=== PATIENT | male | born 1990 | race Caucasian/White ===

== ENCOUNTER 2018-10-22 17:48 | Emergency (ER) | payer SELFPAY ==
[2018-10-22] VITALS (8 sets, daily range): BP systolic 122–149; BP diastolic 70–96; PULSE 104–125; RESP 15–20; TEMP 36.9; O2SAT 92–95; BMI 23.3
[2018-10-22] MEDS: SODIUM CHLORIDE 0.9% 1,000 ML 1000 ML IV (18:42)
[2018-10-22 18:49] LABS: Add Manual Diff / Slide Review NO; Basophils Absolute Auto 0 /uL (0-100); Basophils Percent Auto 0.2 % (0-2); Eosinophils Absolute Auto 100 /uL (0-450); Eosinophils Percent Auto 2.1 % (2-4); Hematocrit 48.3 % (41-53); Hemoglobin 16.3 g/dL (13.5-17.5); Lymphocytes Absolute Auto 800 /uL (1100-4500); Lymphocytes Percent Auto 24.9 % (25-40); Mean Corpuscular HGB Conc 33.6 % (30-36); Mean Corpuscular Hemoglobin 33.9 PG (26-34); Mean Corpuscular Volume 100.7 fL (80-100); Monocytes Absolute Auto 300 /uL (0-900); Monocytes Percent Auto 8.6 % (3-14); Neutrophils Absolute Auto 2000 /uL (1500-7000); Neutrophils Percent Auto 64.2 % (50-75); Platelet Count 116 X10^3/uL (150-400); Red Cell Distribution Width 13.4 % (11.6-14.8)
[2018-10-22 18:58] LABS: Acetaminophen < 10 ug/mL (10-30); Alanine Aminotransferase 111 IU/L (21-72); Albumin 4.6 g/dL (3.5-5.0); Albumin Globulin Ratio 1.6 (1.0-2.8); Alkaline Phosphatase 45 U/L (38-126); Aspartate Aminotransferase 69 IU/L (17-59); BUN Creatinine Ratio 12.9 (6-22); Bilirubin Total 0.8 mg/dL (0.2-1.3); Blood Urea Nitrogen 9 mg/dL (9-20); Calcium 8.5 mg/dL (8.4-10.2); Carbon Dioxide 30 mmol/L (22-32); Chloride 102 mmol/L (98-107); Estimated Glomerular Filt Rate > 60.0 mL/min (>60); Globulin 2.9 g/dL (1.7-4.1); Glucose 93 mg/dL (70-100); HEMOLYSIS 19 (0-50); Potassium 4.4 mmol/L (3.4-5.1); Salicylate < 1.0 mg/dL (<20); Sodium 146 mmol/L (137-145); Total Protein 7.5 g/dL (6.3-8.2)
[2018-10-22 19:07] LABS: Ethanol (ETOH) 485 mg/dL
[2018-10-22 19:28] LABS: Thyroid Stimulating Hormone 0.39 uIU/mL (0.47-4.68)
--- NOTE | 2018-10-22 19:30 | PC.NURSE ---
Pt steady on feet, ambulated to restroom, to void in a urinal.
--- NOTE | 2018-10-22 19:54 | CM.SWNOTE ---
Addendum entered by REGGIE Hernandez 10/22/18 20:27: Diagnostic Impression Pt is very depressed. He has racing thoughts, and auditory hallucinations which he reported make it impossible for him to sleep. He has had a significant weight loss ( over 20 pounds in a short period of time) He feels hopeless and wants to . Pt meets the definition of major depression, severe with psychotic features. Original Note: ED [employer] Note: Presenting Problem: I don't care anymore about anything. Pt is a 28 yo male transported to by EMS after family received several phone calls from concerned friends and pt's new boss. They informed [employer] that pt took his medication with a significant amount of alcohol. According to both pt and his family, he has had several recent losses which included loss of job, end of a relationship, and now living with family. Pt reported that he hears voices telling him to kill himself. Pt reported that he just wants ot kill himself, but also stated that he would not want to hurt his paretns or his sisters and would not do it. Precipitating Event: Pt has had several losses, but according to both pt and his parents, when depressed, he will use alcohol to self-medicate, and to help him to sleep. Current Behavioral Health Providers: Pt has just begun seeing Dr Sarwat Leary, psychologist. Although he only had 2 sessions, he feels a good connection with him. He was a previous patient of him, in 2013. Past Psychiatric History Pt reported that he has been depressed for many years and frequently felt suicidal. He was unable to pinpoint when he began hearing voices, but the voices occur whether or not he is drinking. He denied any history of psychiatric hospitalizations Family History: According to pt's mother, there is a fmaily history of both depression and alcoholism. Substance abuse History: Pt began drinking at age 18. According to his mother, he began using pills and this then progressed to heroin. Pt did not share the information about the pills and mother was not aware of what he had used. According to family, they believe that he stopped using drugs after the rehab he attended in 2013. Pt shared that he recently used cocaine. he was not clear as to when this occurred, but within the last few weeks Pt has a BAL of 485 at time of ED admission. He was unable to quantify the amount, but parents found several wine bottles under his bed. According to his family, he tends to drink vodka, but has not had money and drank wine that was in the home. Substance Abuse Rehab/detox facilities: Pt attended [facility] in [place] ( 28 days) and then [facility]. Pt reported that he was in this program for 6 months, but family said he left the snf house after 3 weeks as he wanted to go on a family trip. Mental Status: Orientation: A/O x 3, but did not know how he got to the hospital. Affect: labile. Pt would go from laughing, to crying and frequently used profanity. Mood: depressed Thought Content: Pt reported AH telling him to kill himself, but was vague regarding what they said and any plans Thought Process: Despite hearnig voices, his language was clear, goal directed ( at times). The BAL of 485 could account for difficulty recounting what had occurred. Judgment: impaired ( stating he is suicidal and does not want help) Memory: cannot adequately assess due to BAL. SI/HI: Pt was clear that he wanted to kill himself, but was not willing to state his plan. He did state that in the past he has put guns to his head. HI:denied Plan: At this time, pt is a danger to himself. He clearly states that He wants to kill himself and that he is hearing voices telling him to kill himself. Although he has stated that he would not do this as he would not want to hurt his family, he is in considerable emotional pain, under the influence of alcohol, and has significant emotional lability. If pt continues to be unwilling to be psychiatrically hospitalized and continues to state that he would not be safe if he were to be discharged, the DCR would need to be contacted for an evaluation. Pt needs to continue to be assessed as his BAL lowers as there may be a very different response when he is no longer under the influence of alcohol. Discharge Planning/Care Management ED Crisis Response Assessment Start: 10/22/18 19:44 Freq: Status: Active Protocol: Document 10/22/18 19:44 [facility] (Rec: 10/22/18 19:54 [id number]) ED Crisis Response Assessment [employer] Assessment Type Risk of Suicide Attempted Suicide Mental Health Substance Abuse Reason for [employer] Referral Social work consult put in by ED provider, Henny Toribio MD due to suicidal ideation/ attempt Referred by ED providers Presenting Problem Pt is a 28 yo male with a long history of depression and substance abuse. According to pt and family, he has had several losses including the break up of a relationship, loss of job, truck towed and now living with parents. Mental health diagnosis No stated diagonosis, but pt appears to meet criteria for severe depression with psychotic features. VOA/CMS check No Suicidal thoughts Yes Past Suicidal thoughts Yes Current Suicidal thoughts Yes Prior Suicide attempts Yes: pt was vague, but said several times gun to his head Current plan for self harm Yes: would not elaborate, but pt's BAL 485 so unsure what is accurate Access to guns and weapons Yes: pt says yes, but family said not in their home Thoughts of harm to others No Past thoughts of harm to others No Current thoughts of harming others No Prior attempts to harm others No Current plan to harm others No Current Risk factors Recent job loss Substance abuse Risk factor comments Pt is clearly stating I just want to kill myself. He does not feel that life is worth living, but given the BAL of 485, pt will need another assessment when BAL is lower. Relevant Medical History none noted Crisis Plan Plan is to keep pt safe in the ED, while continuing to evaluate. Currently he is not willing to get help, but once pt has less alcohol in his system, he may make a different decision. If pt continues to refuse help, and remains suicidal, DCR will need to be contacted once pt is medically cleared. Additional Comment Bed search to begin once it is confirmed if pt is voluntary or not. ED Psychiatric Symptoms Assessment Start: 10/22/18 17:57 Freq: Status: Active Protocol: Document 10/22/18 18:52 [facility] (Rec: 10/22/18 19:06 ML [id number]) Psychiatric Symptoms Assessment Symptoms/Complaint Suicidal Ideation History Of Same Yes Worsens With Alcohol Associated Psychiatric Symptoms Auditory Hallucinations Suicidal Ideation Associated Symptoms Denies Other Symptoms If Self Harm Admits Thoughts of Self Harm Details of Plan states he has a plan but is not able to say. Pt is intoxicated but cooperative. Level of Consciousness Drowsy Patient Orientation Name Age Birthday Patient Behavior/Mood Anxious Labile Ability to Follow Directions Good Thought Process: Looseness of association Depressive Symptoms Crying Spells Recurrent Thoughts of or Suicide Feelings of Hopelessness Yes Suicidal Ideation Constant Suicide Plan Vague Homicidal Ideation None Nausea/Vomiting None
[2018-10-22 19:57] LABS: Urine Tetrahydrocannabinol Negative (Negative)
[2018-10-22 19:58] LABS: Urine Amphetamines Negative (Negative); Urine Barbiturates Negative (Negative); Urine Benzodiazepines Negative (Negative); Urine Cocaine Negative (Negative); Urine MDMA Negative (Negative); Urine Methadone Negative (Negative); Urine Methamphetamines Negative (Negative); Urine Morphine/Opi cutoff 2000 Negative (Negative); Urine Oxycodone Negative (Negative); Urine Phencyclidine Negative (Negative); Urine Tricyclic Antidepressant Positive (Negative)
--- NOTE | 2018-10-22 21:08 | ED.PSYCH ---
HPI - Psych <Paul Kline, DO - Last Filed: 10/24/18 04:16> General Chief Complaint: Psychiatric Symptoms Stated Complaint: Suicidal, took meds Time Seen by Provider: 10/22/18 18:02 Source: patient, family and EMS Mode of arrival: EMS Limitations: no limitations History of Present Illness HPI Narrative: 28-year-old male nonsmoker with extensive alcohol and illicit drug history presents with suicidal ideation and attempt. The patient has severe depression and frequently hears voices which tell him to hurt himself. Today he initially told family and the paramedics that he took an unknown quantity of Seroquel and fluoxetine in an attempt to kill himself. He states that nothing will quiet the voices which tell him to hurt himself, and he has persistent visions of friends being hurt which persist in his thoughts and he is constantly in search of a way to and his pain. He states he has put a gun to his head on multiple occasions, though not today and is very nonspecific about when that had happened and whether not he has access to a firearm currently. He does state that if discharge that he has a planned without a kill himself but he will not only with this plan his. He is a very heavy drinker and had his last drink a few hours prior to arrival. He has gone through withdrawals in the past and states he has even had a seizure. It is unclear how much of the medications he took and at what time. Later in the interview he denies taking any of them and states he was just under the influence of a significant amount of alcohol. Both of his parents present with him and I have had lengthy conversations with our durable medical equipment repairer. The patient has recently been read acquainted with Dr. Sarwat Leary at [facility]. He states he drinks to quiet the voices and end the pain. He repeated states, very matter of factly, that he knows the only thing that will help him is dying. MD complaint: suicidal ideation and feels depressed Onset (ago): hour(s) Duration: constant History of same: Yes Relieving factors: none Exacerbating factors: none Context: recent alcohol abuse Associated psychiatric symptoms: depression, suicidal ideation and auditory hallucinations Associated symptoms: denies other symptoms Treatments prior to arrival: none If self harm: admits thoughts of self harm, has plan, has acted on plan and intentional overdose Related Data Home Medications Medication Instructions Recorded Confirmed fluoxetine 20 mg PO DAILY 10/23/18 10/23/18 quetiapine 25 mg PO BEDTIME 10/23/18 10/23/18 Allergies Allergy/AdvReac Type Severity Reaction Status Date / Time No Known Drug Allergies Allergy Verified 10/22/18 18:04 Review of Systems <Paul Kline DO - Last Filed: 10/24/18 04:16> Constitutional Denies chills, Denies fever(s), Denies lethargy and Denies weakness Eyes Denies change in vision, Denies eye discharge, Denies irritation and Denies loss of vision ENT Ears, Nose, Mouth, and Throat: Denies change in voice, Denies neck pain and Denies sore throat Cardiovascular Denies chest pain, Denies irregular heart rhythm, Denies lightheadedness, Denies palpitations, Denies dyspnea, Denies dyspnea on exertion and Denies orthopnea Respiratory Denies cough, Denies dyspnea, Denies dyspnea on exertion and Denies wheezing Gastrointestinal Gastrointestinal: Denies abdominal pain, Denies change in bowel habits, Denies diarrhea, Denies nausea and Denies vomiting Genitourinary Denies hematuria, Denies flank pain, Denies urinary incontinence and Denies urinary urgency Musculoskeletal Denies neck pain Integumentary/Breasts Denies pruritus, Denies erythema, Denies rash and Denies wounds Neurologic Denies confusion, Denies loss of vision and Denies weakness Psychiatric Denies anxiety, Denies confusion, Denies depression, Reports auditory hallucinations, Reports hopelessness, Denies homicidal ideation and Denies suicidal ideation Endocrine Denies palpitations Hematologic/Lymphatic Denies easy bruising Allergic/Immunologic Denies wheezing PFSH <Paul Kline DO - Last Filed: 10/24/18 04:16> Social History Smoking Status: Current every day smoker Social History Smoking Status: Current every day smoker Exam <Paul Kline DO - Last Filed: 10/24/18 04:16> Narrative Exam Narrative: GENERAL: 28M appears stated age. He is speaking clearly without slurring words, he can walk a straight line without stumbling HEAD: Atraumatic. Normocephalic. No temporal or scalp tenderness. EYES: Pupils equal round and reactive. Extraocular motions intact. No scleral icterus. No injection or drainage. ENT: Nose without bleeding, purulent drainage or septal hematoma. Throat without erythema, tonsillar hypertrophy or exudate. Uvula midline. Airway patent. NECK: Trachea midline. No JVD or lymphadenopathy. Supple, nontender, no meningeal signs. CARDIOVASCULAR: Regular rate and rhythm without murmurs, gallops, or rubs. RESPIRATORY: Clear to auscultation. Breath sounds equal bilaterally. No wheezes, rales, or rhonchi. GASTROINTESTINAL: Abdomen soft, non-tender, nondistended. No hepato-splenomegaly, or palpable masses. No guarding. EXTREMITIES: No clubbing, cyanosis, or edema. No joint tenderness, effusion, or edema noted. BACK: Nontender without deformity or crepitance. No flank tenderness. NEURO: AOx3. SKIN: No rash or erythema. Initial Vital Signs Initial Vital Signs: Vital Signs Temperature 98.5 F 10/22/18 18:04 Pulse Rate 120 H 10/22/18 18:04 Respiratory Rate 18 10/22/18 18:04 Blood Pressure 149/96 H 10/22/18 18:04 Pulse Oximetry 93 10/22/18 18:04 <Henny Toribio DO - Last Filed: 10/23/18 19:09> Initial Vital Signs Initial Vital Signs: Vital Signs Temperature 98.5 F 10/22/18 18:04 Pulse Rate 120 H 10/22/18 18:04 Respiratory Rate 18 10/22/18 18:04 Blood Pressure 149/96 H 10/22/18 18:04 Pulse Oximetry 93 10/22/18 18:04 Course <Paul Kline DO - Last Filed: 10/24/18 04:16> Course Narrative: though etoh is still quite high the patient continues to be alert and oriented and speaks clearly 0015 - call to [facility]. They will not entertain a call until etoh is below 0.08. Patient continues to have suicidal ideation with a plan. He does not want help and doessn't think anything will help. Patient clearly is in need of hospitalization for evaluation and stabilization Orders Ordered: Discontinued Medications Sodium Chloride (Normal Saline 0.9%) 1,000 mls @ 1,000 mls/hr IV BOLUS ONE Stop: 10/22/18 18:50 Last Infusion: 10/23/18 00:57 Dose: 0 mls/hr Admin: 10/22/18 18:42 Dose: 1,000 mls/hr Lorazepam (Ativan) 1 mg IV NOW ONE Stop: 10/23/18 00:27 Last Admin: 10/23/18 00:30 Dose: 1 mg Lorazepam (Ativan) 2 mg IV NOW ONE Stop: 10/23/18 02:04 Last Admin: 10/23/18 02:09 Dose: 2 mg Lorazepam (Ativan) 1 mg PO NOW ONE Stop: 10/23/18 10:13 Last Admin: 10/23/18 10:19 Dose: 1 mg Lorazepam (Ativan) 1 mg PO NOW ONE Stop: 10/23/18 14:06 Last Admin: 10/23/18 14:11 Dose: 1 mg Lorazepam (Ativan) 2 mg PO NOW ONE Stop: 10/23/18 16:05 Last Admin: 10/23/18 16:10 Dose: 2 mg Vital Signs - 8 hr 10/23/18 11:30 10/23/18 15:30 10/23/18 17:48 Pulse Rate 98 H 108 H 91 H Respiratory Rate 16 Blood Pressure [Left Arm] 140/91 H 157/99 H 158/91 H Pulse Oximetry 97 99 99 <Henny Toribio DO - Last Filed: 10/23/18 19:09> Orders Ordered: Discontinued Medications Sodium Chloride (Normal Saline 0.9%) 1,000 mls @ 1,000 mls/hr IV BOLUS ONE Stop: 10/22/18 18:50 Last Infusion: 10/23/18 00:57 Dose: 0 mls/hr Admin: 10/22/18 18:42 Dose: 1,000 mls/hr Lorazepam (Ativan) 1 mg IV NOW ONE Stop: 10/23/18 00:27 Last Admin: 10/23/18 00:30 Dose: 1 mg Lorazepam (Ativan) 2 mg IV NOW ONE Stop: 10/23/18 02:04 Last Admin: 10/23/18 02:09 Dose: 2 mg Lorazepam (Ativan) 1 mg PO NOW ONE Stop: 10/23/18 10:13 Last Admin: 10/23/18 10:19 Dose: 1 mg Lorazepam (Ativan) 1 mg PO NOW ONE Stop: 10/23/18 14:06 Last Admin: 10/23/18 14:11 Dose: 1 mg Lorazepam (Ativan) 2 mg PO NOW ONE Stop: 10/23/18 16:05 Last Admin: 10/23/18 16:10 Dose: 2 mg Vital Signs - 8 hr 10/23/18 11:30 10/23/18 15:30 10/23/18 17:48 Pulse Rate 98 H 108 H 91 H Respiratory Rate 16 Blood Pressure [Left Arm] 140/91 H 157/99 H 158/91 H Pulse Oximetry 97 99 99 MDM - Psych <Paul Kline DO - Last Filed: 10/24/18 04:16> Lab Data Result diagrams: 10/22/18 18:35 10/22/18 18:35 Lab Results 10/22/18 10/22/18 10/22/18 Range/Units 18:35 18:35 18:35 WBC 3.0 L (4.5-11.0) X10^3/uL RBC 4.80 (4.5-5.9) X10^6/uL Hgb 16.3 (13.5-17.5) g/dL Hct 48.3 (41-53) % MCV 100.7 H (80-100) fL MCH 33.9 (26-34) PG MCHC 33.6 (30-36) % RDW 13.4 (11.6-14.8) % Plt Count 116 L (150-400) X10^3/uL Neut % (Auto) 64.2 (50-75) % Lymph % (Auto) 24.9 L (25-40) % [place] % (Auto) 8.6 (3-14) % Eos % (Auto) 2.1 (2-4) % Baso % (Auto) 0.2 (0-2) % Neut # (Auto) 2000 (3864-3604) /uL Lymph # (Auto) 800 L (1052-0079) /uL [place] # (Auto) 300 (0-900) /uL Eos # (Auto) 100 (0-450) /uL Baso # (Auto) 0 (0-100) /uL Sodium 146 H (137-145) mmol/L Potassium 4.4 (3.4-5.1) mmol/L Chloride 102 (98-107) mmol/L Carbon Dioxide 30 (22-32) mmol/L BUN 9 (9-20) mg/dL Creatinine 0.70 (0.66-1.25) mg/dL Estimated GFR > 60.0 (>60) mL/min BUN/Creatinine Ratio 12.9 (6-22) Glucose 93 (70-100) mg/dL Calcium 8.5 (8.4-10.2) mg/dL Total Bilirubin 0.8 (0.2-1.3) mg/dL AST 69 H (17-59) IU/L ALT 111 H (21-72) IU/L Alkaline Phosphatase 45 (38-126) U/L Total Protein 7.5 (6.3-8.2) g/dL Albumin 4.6 (3.5-5.0) g/dL Globulin 2.9 (1.7-4.1) g/dL Albumin/Globulin Ratio 1.6 (1.0-2.8) TSH 0.39 L (0.47-4.68) uIU/mL Salicylates < 1.0 (<20) mg/dL Urine Opiates Screen (Negative) Ur Oxycodone Screen (Negative) Urine Methadone Screen (Negative) Acetaminophen < 10 L (10-30) ug/mL Ur Barbiturates Screen (Negative) U Tricyclic Antidepress (Negative) Ur Phencyclidine Scrn (Negative) Ur Amphetamines Screen (Negative) U Methamphetamines Scrn (Negative) Ur MDMA Scrn (Ecstasy) (Negative) U Benzodiazepines Scrn (Negative) Urine Cocaine Screen (Negative) U Marijuana (THC) Screen (Negative) Ethyl Alcohol 485 H* mg/dL 10/22/18 10/23/18 Range/Units 19:25 00:32 WBC (4.5-11.0) X10^3/uL RBC (4.5-5.9) X10^6/uL Hgb (13.5-17.5) g/dL Hct (41-53) % MCV (80-100) fL MCH (26-34) PG MCHC (30-36) % RDW (11.6-14.8) % Plt Count (150-400) X10^3/uL Neut % (Auto) (50-75) % Lymph % (Auto) (25-40) % [place] % (Auto) (3-14) % Eos % (Auto) (2-4) % Baso % (Auto) (0-2) % Neut # (Auto) (2444-7828) /uL Lymph # (Auto) (5002-6961) /uL [place] # (Auto) (0-900) /uL Eos # (Auto) (0-450) /uL Baso # (Auto) (0-100) /uL Sodium (137-145) mmol/L Potassium (3.4-5.1) mmol/L Chloride (98-107) mmol/L Carbon Dioxide (22-32) mmol/L BUN (9-20) mg/dL Creatinine (0.66-1.25) mg/dL Estimated GFR (>60) mL/min BUN/Creatinine Ratio (6-22) Glucose (70-100) mg/dL Calcium (8.4-10.2) mg/dL Total Bilirubin (0.2-1.3) mg/dL AST (17-59) IU/L ALT (21-72) IU/L Alkaline Phosphatase (38-126) U/L Total Protein (6.3-8.2) g/dL Albumin (3.5-5.0) g/dL Globulin (1.7-4.1) g/dL Albumin/Globulin Ratio (1.0-2.8) TSH (0.47-4.68) uIU/mL Salicylates (<20) mg/dL Urine Opiates Screen Negative (Negative) Ur Oxycodone Screen Negative (Negative) Urine Methadone Screen Negative (Negative) Acetaminophen (10-30) ug/mL Ur Barbiturates Screen Negative (Negative) U Tricyclic Antidepress Positive H (Negative) Ur Phencyclidine Scrn Negative (Negative) Ur Amphetamines Screen Negative (Negative) U Methamphetamines Scrn Negative (Negative) Ur MDMA Scrn (Ecstasy) Negative (Negative) U Benzodiazepines Scrn Negative (Negative) Urine Cocaine Screen Negative (Negative) U Marijuana (THC) Screen Negative (Negative) Ethyl Alcohol 330 mg/dL Point of Care Testing Breathalizer 0 Urine Dip Bedside Urine Glucose Negative Bedside Urine Bilirubin - Negative Bedside Urine Ketone - Negative Urine Specific [place] 1.010 Bedside Urine Occult Blood - Negative Bedside Urine pH 6.0 Bedside Urine Protein - Negative Bedside Urine Urobilinogen - Negative Bedside Urine Nitrite - Negative Bedside Urine Leukocytes - Negative Esterase <Henny C Mank, DO - Last Filed: 10/23/18 19:09> Lab Data Attestation: I reviewed the patient's lab results. Lab Results 10/22/18 10/22/18 10/22/18 Range/Units 18:35 18:35 18:35 WBC 3.0 L (4.5-11.0) X10^3/uL RBC 4.80 (4.5-5.9) X10^6/uL Hgb 16.3 (13.5-17.5) g/dL Hct 48.3 (41-53) % MCV 100.7 H (80-100) fL MCH 33.9 (26-34) PG MCHC 33.6 (30-36) % RDW 13.4 (11.6-14.8) % Plt Count 116 L (150-400) X10^3/uL Neut % (Auto) 64.2 (50-75) % Lymph % (Auto) 24.9 L (25-40) % [place] % (Auto) 8.6 (3-14) % Eos % (Auto) 2.1 (2-4) % Baso % (Auto) 0.2 (0-2) % Neut # (Auto) 2000 (2580-1597) /uL Lymph # (Auto) 800 L (8774-1694) /uL [place] # (Auto) 300 (0-900) /uL Eos # (Auto) 100 (0-450) /uL Baso # (Auto) 0 (0-100) /uL Sodium 146 H (137-145) mmol/L Potassium 4.4 (3.4-5.1) mmol/L Chloride 102 (98-107) mmol/L Carbon Dioxide 30 (22-32) mmol/L BUN 9 (9-20) mg/dL Creatinine 0.70 (0.66-1.25) mg/dL Estimated GFR > 60.0 (>60) mL/min BUN/Creatinine Ratio 12.9 (6-22) Glucose 93 (70-100) mg/dL Calcium 8.5 (8.4-10.2) mg/dL Total Bilirubin 0.8 (0.2-1.3) mg/dL AST 69 H (17-59) IU/L ALT 111 H (21-72) IU/L Alkaline Phosphatase 45 (38-126) U/L Total Protein 7.5 (6.3-8.2) g/dL Albumin 4.6 (3.5-5.0) g/dL Globulin 2.9 (1.7-4.1) g/dL Albumin/Globulin Ratio 1.6 (1.0-2.8) TSH 0.39 L (0.47-4.68) uIU/mL Salicylates < 1.0 (<20) mg/dL Urine Opiates Screen (Negative) Ur Oxycodone Screen (Negative) Urine Methadone Screen (Negative) Acetaminophen < 10 L (10-30) ug/mL Ur Barbiturates Screen (Negative) U Tricyclic Antidepress (Negative) Ur Phencyclidine Scrn (Negative) Ur Amphetamines Screen (Negative) U Methamphetamines Scrn (Negative) Ur MDMA Scrn (Ecstasy) (Negative) U Benzodiazepines Scrn (Negative) Urine Cocaine Screen (Negative) U Marijuana (THC) Screen (Negative) Ethyl Alcohol 485 H* mg/dL 10/22/18 10/23/18 Range/Units 19:25 00:32 WBC (4.5-11.0) X10^3/uL RBC (4.5-5.9) X10^6/uL Hgb (13.5-17.5) g/dL Hct (41-53) % MCV (80-100) fL MCH (26-34) PG MCHC (30-36) % RDW (11.6-14.8) % Plt Count (150-400) X10^3/uL Neut % (Auto) (50-75) % Lymph % (Auto) (25-40) % [place] % (Auto) (3-14) % Eos % (Auto) (2-4) % Baso % (Auto) (0-2) % Neut # (Auto) (9212-1300) /uL Lymph # (Auto) (3698-9438) /uL [place] # (Auto) (0-900) /uL Eos # (Auto) (0-450) /uL Baso # (Auto) (0-100) /uL Sodium (137-145) mmol/L Potassium (3.4-5.1) mmol/L Chloride (98-107) mmol/L Carbon Dioxide (22-32) mmol/L BUN (9-20) mg/dL Creatinine (0.66-1.25) mg/dL Estimated GFR (>60) mL/min BUN/Creatinine Ratio (6-22) Glucose (70-100) mg/dL Calcium (8.4-10.2) mg/dL Total Bilirubin (0.2-1.3) mg/dL AST (17-59) IU/L ALT (21-72) IU/L Alkaline Phosphatase (38-126) U/L Total Protein (6.3-8.2) g/dL Albumin (3.5-5.0) g/dL Globulin (1.7-4.1) g/dL Albumin/Globulin Ratio (1.0-2.8) TSH (0.47-4.68) uIU/mL Salicylates (<20) mg/dL Urine Opiates Screen Negative (Negative) Ur Oxycodone Screen Negative (Negative) Urine Methadone Screen Negative (Negative) Acetaminophen (10-30) ug/mL Ur Barbiturates Screen Negative (Negative) U Tricyclic Antidepress Positive H (Negative) Ur Phencyclidine Scrn Negative (Negative) Ur Amphetamines Screen Negative (Negative) U Methamphetamines Scrn Negative (Negative) Ur MDMA Scrn (Ecstasy) Negative (Negative) U Benzodiazepines Scrn Negative (Negative) Urine Cocaine Screen Negative (Negative) U Marijuana (THC) Screen Negative (Negative) Ethyl Alcohol 330 mg/dL Point of Care Testing Breathalizer 0 Urine Dip Bedside Urine Glucose Negative Bedside Urine Bilirubin - Negative Bedside Urine Ketone - Negative Urine Specific [place] 1.010 Bedside Urine Occult Blood - Negative Bedside Urine pH 6.0 Bedside Urine Protein - Negative Bedside Urine Urobilinogen - Negative Bedside Urine Nitrite - Negative Bedside Urine Leukocytes - Negative Esterase ECG Data Attestation: I personally reviewed and interpreted this ECG as follows: Interpretation: Sinus tachycardia with a rate of 109 P are 146 QRS of 98 QTC of [address] elevation or depression. MDM Narrative Medical decision making narrative: Patient signed out to myself by Dr. ho, patient was medically cleared other than alcohol was too high for the [facility] to dispatch. They would like it to be below 80. Patient has a torsed suicidal ideation, he has a plan although he would not tell it to Dr. ho. He states that he drinks alcohol in order to drown out the voices that tell him to kill himself. He has been cooperative but has stated that he feels there is nothing to be done and that he only outcome is for him to kill himself. Patient was seen by social work during yesterday evening and they felt he needed placement. He has seen Sarwat Leary who has recommended 24 hour supervision if at home and both times he has been left alone. Throughout patient's stay he has had several doses of Ativan p.o. to prevent withdrawal symptoms. He has had a little bit of shakiness but has not been hypertensive above 150 systolic or tachycardic. Patient has been medically cleared. He continues to endorse suicidal ideation and when asked if he has a plan states he can get very creative. His primary care doctor Shobha also saw him in the department and agrees that he needs hospitalization. Patient was initially no involuntary but after evaluated by [facility] states that he would rather go voluntarily to a facility then be detained. Bed was found at [facility], patient has been accepted by Dr. Abbott. Discharge Plan Departure Patient Disposition: [facility] Clinical Impression: Suicidal ideation, Bipolar disorder Discharge Date/Time: 10/23/18 19:44 Interventions: ED Discharge Assessment Last Done: 10/23/18 19:44 Prescriptions: No Action fluoxetine 20 mg Tablet 20 mg PO DAILY RF: 0 quetiapine 50 mg Tablet 25 mg PO BEDTIME RF: 0
--- NOTE | 2018-10-22 21:41 | PC.NURSE ---
Pt stated this fucking sucks and you have no idea the amount of pain I am in. I cannot express the amount of pain that i feel.
--- NOTE | 2018-10-22 22:48 | PC.NURSE ---
Monitor wires agitating patient, notified jodi Curran to vital intermittently per protocol.
--- NOTE | 2018-10-22 23:05 | PC.NURSE ---
Patient is lying down in bed, family is in the room.
--- NOTE | 2018-10-22 23:15 | PC.NURSE ---
Patient is lying down in bed, his mom is lying in the bed with him.
--- NOTE | 2018-10-22 23:30 | PC.NURSE ---
Patient is lying down in bed, his mom is sitting in the room with him.
[2018-10-23] VITALS (7 sets, daily range): BP systolic 131–159; BP diastolic 69–99; PULSE 87–110; RESP 16–20; TEMP 36.6; O2SAT 96–99
--- NOTE | 2018-10-23 00:10 | ED_ITS ---
HPI - Psych <Paul Kline, DO - Last Filed: 10/24/18 04:16> General Chief Complaint: Psychiatric Symptoms Stated Complaint: Suicidal, took meds Time Seen by Provider: 10/22/18 18:02 Source: patient, family and EMS Mode of arrival: EMS Limitations: no limitations History of Present Illness HPI Narrative: 28-year-old male nonsmoker with extensive alcohol and illicit drug history presents with suicidal ideation and attempt. The patient has severe depression and frequently hears voices which tell him to hurt himself. Today he initially told family and the paramedics that he took an unknown quantity of Seroquel and fluoxetine in an attempt to kill himself. He states that nothing will quiet the voices which tell him to hurt himself, and he has persistent visions of friends being hurt which persist in his thoughts and he is constantly in search of a way to and his pain. He states he has put a gun to his head on multiple occasions, though not today and is very nonspecific about when that had happened and whether not he has access to a firearm currently. He does state that if discharge that he has a planned without a kill himself but he will not only with this plan his. He is a very heavy drinker and had his last drink a few hours prior to arrival. He has gone through withdrawals in the past and states he has even had a seizure. It is unclear how much of the medications he took and at what time. Later in the interview he denies taking any of them and states he was just under the influence of a significant amount of alcohol. Both of his parents present with him and I have had lengthy conversations with our behavioral medical director. The patient has recently been read acquainted with Dr. Sarwat Leary at [facility]. He states he drinks to quiet the voices and end the pain. He repeated states, very matter of factly, that he knows the only thing that will help him is dying. MD complaint: suicidal ideation and feels depressed Onset (ago): hour(s) Duration: constant History of same: Yes Relieving factors: none Exacerbating factors: none Context: recent alcohol abuse Associated psychiatric symptoms: depression, suicidal ideation and auditory hallucinations Associated symptoms: denies other symptoms Treatments prior to arrival: none If self harm: admits thoughts of self harm, has plan, has acted on plan and intentional overdose Related Data Home Medications Medication Instructions Recorded Confirmed fluoxetine 20 mg PO DAILY 10/23/18 10/23/18 quetiapine 25 mg PO BEDTIME 10/23/18 10/23/18 Allergies Allergy/AdvReac Type Severity Reaction Status Date / Time No Known Drug Allergies Allergy Verified 10/22/18 18:04 Review of Systems <Paul Kline DO - Last Filed: 10/24/18 04:16> Constitutional Denies chills, Denies fever(s), Denies lethargy and Denies weakness Eyes Denies change in vision, Denies eye discharge, Denies irritation and Denies loss of vision ENT Ears, Nose, Mouth, and Throat: Denies change in voice, Denies neck pain and Denies sore throat Cardiovascular Denies chest pain, Denies irregular heart rhythm, Denies lightheadedness, Denies palpitations, Denies dyspnea, Denies dyspnea on exertion and Denies orthopnea Respiratory Denies cough, Denies dyspnea, Denies dyspnea on exertion and Denies wheezing Gastrointestinal Gastrointestinal: Denies abdominal pain, Denies change in bowel habits, Denies diarrhea, Denies nausea and Denies vomiting Genitourinary Denies hematuria, Denies flank pain, Denies urinary incontinence and Denies urinary urgency Musculoskeletal Denies neck pain Integumentary/Breasts Denies pruritus, Denies erythema, Denies rash and Denies wounds Neurologic Denies confusion, Denies loss of vision and Denies weakness Psychiatric Denies anxiety, Denies confusion, Denies depression, Reports auditory hallucinations, Reports hopelessness, Denies homicidal ideation and Denies suicidal ideation Endocrine Denies palpitations Hematologic/Lymphatic Denies easy bruising Allergic/Immunologic Denies wheezing PFSH <Paul Kline DO - Last Filed: 10/24/18 04:16> Social History Smoking Status: Current every day smoker Social History Smoking Status: Current every day smoker Exam <Paul Kline DO - Last Filed: 10/24/18 04:16> Narrative Exam Narrative: GENERAL: 28M appears stated age. He is speaking clearly without slurring words, he can walk a straight line without stumbling HEAD: Atraumatic. Normocephalic. No temporal or scalp tenderness. EYES: Pupils equal round and reactive. Extraocular motions intact. No scleral icterus. No injection or drainage. ENT: Nose without bleeding, purulent drainage or septal hematoma. Throat without erythema, tonsillar hypertrophy or exudate. Uvula midline. Airway patent. NECK: Trachea midline. No JVD or lymphadenopathy. Supple, nontender, no meningeal signs. CARDIOVASCULAR: Regular rate and rhythm without murmurs, gallops, or rubs. RESPIRATORY: Clear to auscultation. Breath sounds equal bilaterally. No wheezes, rales, or rhonchi. GASTROINTESTINAL: Abdomen soft, non-tender, nondistended. No hepato- splenomegaly, or palpable masses. No guarding. EXTREMITIES: No clubbing, cyanosis, or edema. No joint tenderness, effusion, or edema noted. BACK: Nontender without deformity or crepitance. No flank tenderness. NEURO: AOx3. SKIN: No rash or erythema. Initial Vital Signs Initial Vital Signs: Vital Signs Temperature 98.5 F 10/22/18 18:04 Pulse Rate 120 H 10/22/18 18:04 Respiratory Rate 18 10/22/18 18:04 Blood Pressure 149/96 H 10/22/18 18:04 Pulse Oximetry 93 10/22/18 18:04 <Henny Toribio DO - Last Filed: 10/23/18 19:09> Initial Vital Signs Initial Vital Signs: Vital Signs Temperature 98.5 F 10/22/18 18:04 Pulse Rate 120 H 10/22/18 18:04 Respiratory Rate 18 10/22/18 18:04 Blood Pressure 149/96 H 10/22/18 18:04 Pulse Oximetry 93 10/22/18 18:04 Course <Paul Kline DO - Last Filed: 10/24/18 04:16> Course Narrative: though etoh is still quite high the patient continues to be alert and oriented and speaks clearly 0015 - call to [facility]. They will not entertain a call until etoh is below 0.08. Patient continues to have suicidal ideation with a plan. He does not want help and doessn't think anything will help. Patient clearly is in need of hospitaliza tion for evaluation and stabilization Orders Ordered: Discontinued Medications Sodium Chloride (Normal Saline 0.9%) 1,000 mls @ 1,000 mls/hr IV BOLUS ONE Stop: 10/22/18 18:50 Last Infusion: 10/23/18 00:57 Dose: 0 mls/hr Admin: 10/22/18 18:42 Dose: 1,000 mls/hr Lorazepam (Ativan) 1 mg IV NOW ONE Stop: 10/23/18 00:27 Last Admin: 10/23/18 00:30 Dose: 1 mg Lorazepam (Ativan) 2 mg IV NOW ONE Stop: 10/23/18 02:04 Last Admin: 10/23/18 02:09 Dose: 2 mg Lorazepam (Ativan) 1 mg PO NOW ONE Stop: 10/23/18 10:13 Last Admin: 10/23/18 10:19 Dose: 1 mg Lorazepam (Ativan) 1 mg PO NOW ONE Stop: 10/23/18 14:06 Last Admin: 10/23/18 14:11 Dose: 1 mg Lorazepam (Ativan) 2 mg PO NOW ONE Stop: 10/23/18 16:05 Last Admin: 10/23/18 16:10 Dose: 2 mg Vital Signs - 8 hr 10/23/18 11:30 10/23/18 15:30 10/23/18 17:48 Pulse Rate 98 H 108 H 91 H Respiratory Rate 16 Blood Pressure [Left Arm] 140/91 H 157/99 H 158/91 H Pulse Oximetry 97 99 99 <Henny Toribio DO - Last Filed: 10/23/18 19:09> Orders Ordered: Discontinued Medications Sodium Chloride (Normal Saline 0.9%) 1,000 mls @ 1,000 mls/hr IV BOLUS ONE Stop: 10/22/18 18:50 Last Infusion: 10/23/18 00:57 Dose: 0 mls/hr Admin: 10/22/18 18:42 Dose: 1,000 mls/hr Lorazepam (Ativan) 1 mg IV NOW ONE Stop: 10/23/18 00:27 Last Admin: 10/23/18 00:30 Dose: 1 mg Lorazepam (Ativan) 2 mg IV NOW ONE Stop: 10/23/18 02:04 Last Admin: 10/23/18 02:09 Dose: 2 mg Lorazepam (Ativan) 1 mg PO NOW ONE Stop: 10/23/18 10:13 Last Admin: 10/23/18 10:19 Dose: 1 mg Lorazepam (Ativan) 1 mg PO NOW ONE Stop: 10/23/18 14:06 Last Admin: 10/23/18 14:11 Dose: 1 mg Lorazepam (Ativan) 2 mg PO NOW ONE Stop: 10/23/18 16:05 Last Admin: 10/23/18 16:10 Dose: 2 mg Vital Signs - 8 hr 10/23/18 11:30 10/23/18 15:30 10/23/18 17:48 Pulse Rate 98 H 108 H 91 H Respiratory Rate 16 Blood Pressure [Left Arm] 140/91 H 157/99 H 158/91 H Pulse Oximetry 97 99 99 MDM - Psych <Paul Kline DO - Last Filed: 10/24/18 04:16> Lab Data Result diagrams: 10/22/18 18:35 10/22/18 18:35 Lab Results 10/22/18 10/22/18 10/22/18 Range/Units 18:35 18:35 18:35 WBC 3.0 L (4.5-11.0) X10^3/uL RBC 4.80 (4.5-5.9) X10^6/uL Hgb 16.3 (13.5-17.5) g/dL Hct 48.3 (41-53) % MCV 100.7 H (80-100) fL MCH 33.9 (26-34) PG MCHC 33.6 (30-36) % RDW 13.4 (11.6-14.8) % Plt Count 116 L (150-400) X10^3/uL Neut % (Auto) 64.2 (50-75) % Lymph % (Auto) 24.9 L (25-40) % [place] % (Auto) 8.6 (3-14) % Eos % (Auto) 2.1 (2-4) % Baso % (Auto) 0.2 (0-2) % Neut # (Auto) 2000 (8241-8926) /uL Lymph # (Auto) 800 L (2587-5032) /uL [place] # (Auto) 300 (0-900) /uL Eos # (Auto) 100 (0-450) /uL Baso # (Auto) 0 (0-100) /uL Sodium 146 H (137-145) mmol/L Potassium 4.4 (3.4-5.1) mmol/L Chloride 102 (98-107) mmol/L Carbon Dioxide 30 (22-32) mmol/L BUN 9 (9-20) mg/dL Creatinine 0.70 (0.66-1.25) mg/dL Estimated GFR > 60.0 (>60) mL/min BUN/Creatinine Ratio 12.9 (6-22) Glucose 93 (70-100) mg/dL Calcium 8.5 (8.4-10.2) mg/dL Total Bilirubin 0.8 (0.2-1.3) mg/dL AST 69 H (17-59) IU/L ALT 111 H (21-72) IU/L Alkaline Phosphatase 45 (38-126) U/L Total Protein 7.5 (6.3-8.2) g/dL Albumin 4.6 (3.5-5.0) g/dL Globulin 2.9 (1.7-4.1) g/dL Albumin/Globulin Ratio 1.6 (1.0-2.8) TSH 0.39 L (0.47-4.68) uIU/mL Salicylates < 1.0 (<20) mg/dL Urine Opiates Screen (Negative) Ur Oxycodone Screen (Negative) Urine Methadone Screen (Negative) Acetaminophen < 10 L (10-30) ug/mL Ur Barbiturates Screen (Negative) U Tricyclic Antidepress (Negative) Ur Phencyclidine Scrn (Negative) Ur Amphetamines Screen (Negative) U Methamphetamines Scrn (Negative) Ur MDMA Scrn (Ecstasy) (Negative) U Benzodiazepines Scrn (Negative) Urine Cocaine Screen (Negative) U Marijuana (THC) Screen (Negative) Ethyl Alcohol 485 H* mg/dL 10/22/18 10/23/18 Range/Units 19:25 00:32 WBC (4.5-11.0) X10^3/uL RBC (4.5-5.9) X10^6/uL Hgb (13.5-17.5) g/dL Hct (41-53) % MCV (80-100) fL MCH (26-34) PG MCHC (30-36) % RDW (11.6-14.8) % Plt Count (150-400) X10^3/uL Neut % (Auto) (50-75) % Lymph % (Auto) (25-40) % [place] % (Auto) (3-14) % Eos % (Auto) (2-4) % Baso % (Auto) (0-2) % Neut # (Auto) (9600-9654) /uL Lymph # (Auto) (8885-8037) /uL [place] # (Auto) (0-900) /uL Eos # (Auto) (0-450) /uL Baso # (Auto) (0-100) /uL Sodium (137-145) mmol/L Potassium (3.4-5.1) mmol/L Chloride (98-107) mmol/L Carbon Dioxide (22-32) mmol/L BUN (9-20) mg/dL Creatinine (0.66-1.25) mg/dL Estimated GFR (>60) mL/min BUN/Creatinine Ratio (6-22) Glucose (70-100) mg/dL Calcium (8.4-10.2) mg/dL Total Bilirubin (0.2-1.3) mg/dL AST (17-59) IU/L ALT (21-72) IU/L Alkaline Phosphatase (38-126) U/L Total Protein (6.3-8.2) g/dL Albumin (3.5-5.0) g/dL Globulin (1.7-4.1) g/dL Albumin/Globulin Ratio (1.0-2.8) TSH (0.47-4.68) uIU/mL Salicylates (<20) mg/dL Urine Opiates Screen Negative (Negative) Ur Oxycodone Screen Negative (Negative) Urine Methadone Screen Negative (Negative) Acetaminophen (10-30) ug/mL Ur Barbiturates Screen Negative (Negative) U Tricyclic Antidepress Positive H (Negative) Ur Phencyclidine Scrn Negative (Negative) Ur Amphetamines Screen Negative (Negative) U Methamphetamines Scrn Negative (Negative) Ur MDMA Scrn (Ecstasy) Negative (Negative) U Benzodiazepines Scrn Negative (Negative) Urine Cocaine Screen Negative (Negative) U Marijuana (THC) Screen Negative (Negative) Ethyl Alcohol 330 mg/dL Point of Care Testing Breathalizer 0 Urine Dip Bedside Urine Glucose Negative Bedside Urine Bilirubin - Negative Bedside Urine Ketone - Negative Urine Specific [place] 1.010 Bedside Urine Occult Blood - Negative Bedside Urine pH 6.0 Bedside Urine Protein - Negative Bedside Urine Urobilinogen - Negative Bedside Urine Nitrite - Negative Bedside Urine Leukocytes - Negative Esterase <Henny Toribio, DO - Last Filed: 10/23/18 19:09> Lab Data Attestation: I reviewed the patient's lab results. Lab Results 10/22/18 10/22/18 10/22/18 Range/Units 18:35 18:35 18:35 WBC 3.0 L (4.5-11.0) X10^3/uL RBC 4.80 (4.5-5.9) X10^6/uL Hgb 16.3 (13.5-17.5) g/dL Hct 48.3 (41-53) % MCV 100.7 H (80-100) fL MCH 33.9 (26-34) PG MCHC 33.6 (30-36) % RDW 13.4 (11.6-14.8) % Plt Count 116 L (150-400) X10^3/uL Neut % (Auto) 64.2 (50-75) % Lymph % (Auto) 24.9 L (25-40) % [place] % (Auto) 8.6 (3-14) % Eos % (Auto) 2.1 (2-4) % Baso % (Auto) 0.2 (0-2) % Neut # (Auto) 2000 (5327-1399) /uL Lymph # (Auto) 800 L (9817-7966) /uL [place] # (Auto) 300 (0-900) /uL Eos # (Auto) 100 (0-450) /uL Baso # (Auto) 0 (0-100) /uL Sodium 146 H (137-145) mmol/L Potassium 4.4 (3.4-5.1) mmol/L Chloride 102 (98-107) mmol/L Carbon Dioxide 30 (22-32) mmol/L BUN 9 (9-20) mg/dL Creatinine 0.70 (0.66-1.25) mg/dL Estimated GFR > 60.0 (>60) mL/min BUN/Creatinine Ratio 12.9 (6-22) Glucose 93 (70-100) mg/dL Calcium 8.5 (8.4-10.2) mg/dL Total Bilirubin 0.8 (0.2-1.3) mg/dL AST 69 H (17-59) IU/L ALT 111 H (21-72) IU/L Alkaline Phosphatase 45 (38-126) U/L Total Protein 7.5 (6.3-8.2) g/dL Albumin 4.6 (3.5-5.0) g/dL Globulin 2.9 (1.7-4.1) g/dL Albumin/Globulin Ratio 1.6 (1.0-2.8) TSH 0.39 L (0.47-4.68) uIU/mL Salicylates < 1.0 (<20) mg/dL Urine Opiates Screen (Negative) Ur Oxycodone Screen (Negative) Urine Methadone Screen (Negative) Acetaminophen < 10 L (10-30) ug/mL Ur Barbiturates Screen (Negative) U Tricyclic Antidepress (Negative) Ur Phencyclidine Scrn (Negative) Ur Amphetamines Screen (Negative) U Methamphetamines Scrn (Negative) Ur MDMA Scrn (Ecstasy) (Negative) U Benzodiazepines Scrn (Negative) Urine Cocaine Screen (Negative) U Marijuana (THC) Screen (Negative) Ethyl Alcohol 485 H* mg/dL 10/22/18 10/23/18 Range/Units 19:25 00:32 WBC (4.5-11.0) X10^3/uL RBC (4.5-5.9) X10^6/uL Hgb (13.5-17.5) g/dL Hct (41-53) % MCV (80-100) fL MCH (26-34) PG MCHC (30-36) % RDW (11.6-14.8) % Plt Count (150-400) X10^3/uL Neut % (Auto) (50-75) % Lymph % (Auto) (25-40) % [place] % (Auto) (3-14) % Eos % (Auto) (2-4) % Baso % (Auto) (0-2) % Neut # (Auto) (6472-4154) /uL Lymph # (Auto) (7337-6063) /uL [place]ap[place] # (Auto) (0-900) /uL Eos # (Auto) (0-450) /uL Baso # (Auto) (0-100) /uL Sodium (137-145) mmol/L Potassium (3.4-5.1) mmol/L Chloride (98-107) mmol/L Carbon Dioxide (22-32) mmol/L BUN (9-20) mg/dL Creatinine (0.66-1.25) mg/dL Estimated GFR (>60) mL/min BUN/Creatinine Ratio (6-22) Glucose (70-100) mg/dL Calcium (8.4-10.2) mg/dL Total Bilirubin (0.2-1.3) mg/dL AST (17-59) IU/L ALT (21-72) IU/L Alkaline Phosphatase (38-126) U/L Total Protein (6.3-8.2) g/dL Albumin (3.5-5.0) g/dL Globulin (1.7-4.1) g/dL Albumin/Globulin Ratio (1.0-2.8) TSH (0.47-4.68) uIU/mL Salicylates (<20) mg/dL Urine Opiates Screen Negative (Negative) Ur Oxycodone Screen Negative (Negative) Urine Methadone Screen Negative (Negative) Acetaminophen (10-30) ug/mL Ur Barbiturates Screen Negative (Negative) U Tricyclic Antidepress Positive H (Negative) Ur Phencyclidine Scrn Negative (Negative) Ur Amphetamines Screen Negative (Negative) U Methamphetamines Scrn Negative (Negative) Ur MDMA Scrn (Ecstasy) Negative (Negative) U Benzodiazepines Scrn Negative (Negative) Urine Cocaine Screen Negative (Negative) U Marijuana (THC) Screen Negative (Negative) Ethyl Alcohol 330 mg/dL Point of Care Testing Breathalizer 0 Urine Dip Bedside Urine Glucose Negative Bedside Urine Bilirubin - Negative Bedside Urine Ketone - Negative Urine Specific [place] 1.010 Bedside Urine Occult Blood - Negative Bedside Urine pH 6.0 Bedside Urine Protein - Negative Bedside Urine Urobilinogen - Negative Bedside Urine Nitrite - Negative Bedside Urine Leukocytes - Negative Esterase ECG Data Attestation: I personally reviewed and interpreted this ECG as follows: Interpretation: Sinus tachycardia with a rate of 109 P are 146 QRS of 98 QTC of [address] elevation or depression. MDM Narrative Medical decision making narrative: Patient signed out to myself by Dr. ho, patient was medically cleared other than alcohol was too high for the [facility] to dispatch. They would like it to be below 80. Patient has a torsed suicidal ideation, he has a plan although he would not tell it to Dr. ho. He states that he drinks alcohol in order to drown out the voices that tell him to kill himself. He has been cooperative but has stated that he feels there is nothing to be done and that he only outcome is for him to kill himself. Patient was seen by social work during yesterday evening and they felt he needed placement. He has seen Sarwat Leary who has recommended 24 hour supervision if at home and both times he has been left alone. Throughout patient's stay he has had several doses of Ativan p.o. to prevent withdrawal symptoms. He has had a little bit of shakiness but has not been hype rtensive above 150 systolic or tachycardic. Patient has been medically cleared. He continues to endorse suicidal ideation and when asked if he has a plan states he can get very creative. His primary care doctor Shobha also saw him in the department and agrees that he needs hospitalization. Patient was initially no involuntary but after evaluated by [facility] states that he would rather go voluntarily to a facility then be detained. Bed was found at [place], patient has been accepted by Dr. Abbott. Discharge Plan Departure Patient Disposition: [facility] Clinical Impression: Suicidal ideation, Bipolar disorder Discharge Date/Time: 10/23/18 19:44 Interventions: ED Discharge Assessment Last Done: 10/23/18 19:44 Prescriptions: No Action fluoxetine 20 mg Tablet 20 mg PO DAILY RF: 0 quetiapine 50 mg Tablet 25 mg PO BEDTIME RF: 0
--- NOTE | 2018-10-23 00:15 | PC.NURSE ---
[facility] called. patients etoh must be below 0.08 before they will evaluate. provider aware and no new orders at this time.
[2018-10-23] MEDS: LORazepam 2 MG/ML INJ 1 MG IV (00:30)
[2018-10-23 00:58] LABS: Ethanol (ETOH) 330 mg/dL
--- NOTE | 2018-10-23 01:30 | PC.NURSE ---
Patient is quietly lying down in the bed
[2018-10-23] MEDS: LORazepam 2 MG/ML INJ IV (02:09)
--- NOTE | 2018-10-23 06:00 | PC.NURSE ---
Patient is lying on the bed, his mom is sleeping in the recliner in the room.
--- NOTE | 2018-10-23 07:56 | PC.NURSE ---
Patient's mother with him at bedside
--- NOTE | 2018-10-23 09:52 | PC.NURSE ---
Patient's PCP met with patient in room
[2018-10-23] MEDS: LORazepam 0.5 MG TABLET 1 MG PO ×2 (10:19→14:11)
--- NOTE | 2018-10-23 12:46 | PC.NURSE ---
Care Mgmt with patient consulting
--- NOTE | 2018-10-23 13:18 | PC.NURSE ---
WAXER: Pt is laying down and has visitors in the room.
--- NOTE | 2018-10-23 13:31 | PC.NURSE ---
BAG MACHINE OPERATOR: pt is laying down and is on his phone. Visitors are in the room.
--- NOTE | 2018-10-23 13:49 | PC.NURSE ---
DIGITAL TRAFFIC COORDINATOR: pt is lying down and visitor is in the room.
--- NOTE | 2018-10-23 14:15 | PC.NURSE ---
Pt. in laying down.
--- NOTE | 2018-10-23 14:30 | PC.NURSE ---
CONTACT LENS BLOCKER: pt. is sleeping.
--- NOTE | 2018-10-23 15:03 | PC.NURSE ---
CITY PLANNING ENGINEER: pt. is laying down on his phone.
--- NOTE | 2018-10-23 15:15 | PC.NURSE ---
TELECOMMUNICATIONS FIELD TECHNICIAN: Dr. Fierro is in with the pt.
--- NOTE | 2018-10-23 15:46 | PC.NURSE ---
Pt. is calm and lying down. Mother in is the room.
--- NOTE | 2018-10-23 16:01 | PC.NURSE ---
Pt. is laying down. Mother and Dr. Fierro is in the room.
--- NOTE | 2018-10-23 16:09 | CM.SWNOTE ---
FINANCIAL ENGINEER note: Received call from ED staff this AM requesting that FINANCIAL ENGINEER assist with placement. At time of initial call patient BAL was too high to assess. FINANCIAL ENGINEER went to ED around 1:00pm today. Breathalyzer done during visit and current read was 0.66. Met with patient explained FINANCIAL ENGINEER role. Patient laying flat in ED bed does not move to interact during interview. Patient alert and oriented x3. Patient reports that he continues to hear voices patient denies that the voices are his own. Patient reports that he is unable to get them to stop this he reports is why he drinks, to stop the voices that he hears in his head. FINANCIAL ENGINEER asked patient what the voices say to him? He reports all negative stuff. Asked patient what the last thing the voice(s) said to him. He reports that a few minutes prior the voice told him to end it all. Patient admits to being actively suicidal but denies specific plan. Discussed d/c options with patient and he reports that he plans to d/c home to his parents home. Patient denies the need for inpatient psychiatric care or alcohol detox. Patient does admit to drinking alcohol on daily basis. FINANCIAL ENGINEER asked patient if he would voluntarily consider treatment for management of the continued voice(s) he is hearing in his head. Patient states No I want to go home. Patient's parents entered the room during interview. Patient agreeable for them to listen to conversation about voluntary and involuntary placement options. Mother and Father both in agreement that patient would benefit from inpatient help. Again, patient refused. Therefore, called placed to [facility]/spoke mental health specialist and [facility] will be dispatched. Hospital attestation form completed and faxed to [facility]. Affidavit provided to parents to complete prior to [facility] arrival. In addition, left vm with outpatient provider to please call/fax note to ED to strengthen case for detainment. Spoke with VIPIN/Adam he reports that he will be at [facility] around 3:45pm. ED staff made aware and will have packet ready with clinical notes for review. P: Anticipate detainment vs. less restrictive plan to return home. [facility] to evaluate for detainment appropriateness. REGGIE Francis
[2018-10-23] MEDS: LORazepam 0.5 MG TABLET 2 MG PO (16:10)
--- NOTE | 2018-10-23 17:16 | PC.NURSE ---
MARKETING PRODUCER: Pt. is lying down. Mother and Lucille are in the room.
--- NOTE | 2018-10-23 17:30 | PC.NURSE ---
PATTERN VAULT CLERK: pt. is lying down.
--- NOTE | 2018-10-23 17:34 | CM.SWNOTE ---
ED TANK TRUCK ENGINE MECHANIC NOTE Update: Following [facility] consult, pt is now willing to accept inpt placement as a voluntary. CULL GRADER met with pt today after initial meeting last evening. His BAL has gone from 485 to 0. Pt is Alert and oriented x 3. He is willing to go to an inpatient psychiatry unit. He continues to have AH telling him to kill himself. Pt was not specific on a plan, but stated that they tell him he is a piece of shit and to kill himself. Pt continues to report that he has had long standing depression, feels shaky most of the time and his inability to sleep is due to racing thoughts. He stated that when he lies down at night, he cannot shut off his brain. Due to his ongoing voices with SI, pt is not safe to leave. Plan: Bed search continues. SW continues to follow
--- NOTE | 2018-10-23 18:01 | PC.NURSE ---
BUSINESS OFFICE DIRECTOR: pt is lying in bed. Father is in the room.
--- NOTE | 2018-10-23 18:31 | PC.NURSE ---
DIVISION HUMAN RESOURCES MANAGER: pt. is in bed on his phone.
--- NOTE | 2018-10-23 18:45 | PC.NURSE ---
MANAGER GLOBAL COMMUNICATIONS/SANTINO Note: I introduced my self to patient. Pt. is calm and laying down on gurney. Pt. patients are in room.
--- NOTE | 2018-10-23 19:01 | PC.NURSE ---
VIDEO RECORDER MECHANIC/BUNCH BREAKER Note: Pt. and family members were just informed that he was accepted by [facility]. [facility] ETA 1930.
--- NOTE | 2018-10-23 19:08 | PC.NURSE ---
called [facility] to give RN to RN, spoke with Annmarie in intake at [phone], Annmarie stated that she would send the info to the unit and if the unit RN had any questions she would call us.
--- NOTE | 2018-10-23 21:32 | PC.NURSE ---
report given to Ready at [facility].
[2018-10-25 15:33] LABS: Osmolality, Serum 421 mosm/kg (260-310)
== END 2018-10-23 19:44 | disposition short-term general hospital (02) ==
PROVIDERS: Emergency Medicine; Emergency Provider Emergency Medicine
DX: R45.851 Suicidal ideations (principal); F31.9 Bipolar disorder, unspecified; R00.0 Tachycardia, unspecified
CPT/HCPCS: 36415; 36591; 80053; 80305; 80320; 80329; 81003; 82075; 83930; 84443; 85025; 93005; 93010; 96361; 96374; 96376; 99285; G0480; J2060

== ENCOUNTER → 2019-07-31 13:29 | Outpatient (ROUT) | payer SELFPAY ==
[2019-07-31 13:35] LABS: Add Manual Diff / Slide Review NO; Basophils Absolute Auto 0 /uL (0-100); Basophils Percent Auto 0.2 % (0-2); Eosinophils Absolute Auto 100 /uL (0-450); Eosinophils Percent Auto 0.9 % (2-4); Hematocrit 46.7 % (41-53); Hemoglobin 15.5 g/dL (13.5-17.5); Lymphocytes Absolute Auto 900 /uL (1100-4500); Lymphocytes Percent Auto 13.9 % (25-40); Mean Corpuscular HGB Conc 33.3 % (30-36); Mean Corpuscular Hemoglobin 31.5 PG (26-34); Mean Corpuscular Volume 94.6 fL (80-100); Monocytes Absolute Auto 600 /uL (0-900); Monocytes Percent Auto 9.4 % (3-14); Neutrophils Absolute Auto 5000 /uL (1500-7000); Neutrophils Percent Auto 75.6 % (50-75); Platelet Count 215 X10^3/uL (150-400); Red Blood Cell Count 4.93 X10^6/uL (4.5-5.9); Red Cell Distribution Width 12.2 % (11.6-14.8); White Blood Cell Count 6.6 X10^3/uL (4.5-11.0)
[2019-07-31 13:45] LABS: Alanine Aminotransferase 14 IU/L (<50); Albumin 4.8 g/dL (3.5-5.0); Albumin Globulin Ratio 1.7 (1.0-2.8); Alkaline Phosphatase 44 U/L (38-126); Amylase 178 U/L (30-110); Aspartate Aminotransferase 13 IU/L (17-59); BUN Creatinine Ratio 16.5 (6-22); Bilirubin Total 0.6 mg/dL (0.2-1.3); Blood Urea Nitrogen 13 mg/dL (9-20); C-Reactive Protein Quant 1.1 mg/dL (<1.0); Calcium 9.9 mg/dL (8.4-10.2); Carbon Dioxide 24 mmol/L (22-32); Chloride 104 mmol/L (98-107); Estimated Glomerular Filt Rate > 60.0 mL/min (>60); Globulin 2.9 g/dL (1.7-4.1); Glucose 95 mg/dL (70-100); HEMOLYSIS 23 (0-50); Lipase 1441 U/L (23-300); Potassium 4.5 mmol/L (3.4-5.1); Sodium 139 mmol/L (137-145); Total Protein 7.7 g/dL (6.3-8.2)
[2019-07-31 13:54] LABS: Erythrocyte Sedimentation Rate 1 MM/HR (0-15)
== END ==
PROVIDERS: Visit Provider Internal Medicine
DX: R10.11 Right upper quadrant pain (principal)
CPT/HCPCS: 80053; 82150; 83690; 85025; 85651; 86140

== ENCOUNTER → 2019-07-31 13:58 | Outpatient (CLI) | payer SELFPAY ==
--- NOTE | 2019-07-31 | DI.CT.S_ITS ---
PROCEDURE: CT ABDOMEN W CON INDICATIONS: UPPER QUAD ABDOMINAL PAIN TECHNIQUE: After the administration of oral and intravenous contrast, 5 mm thick sections acquired from the diaphragms to the iliac crests. 5 mm thick coronal and sagittal reformats were acquired. For radiation dose reduction, the following was used: automated exposure control, adjustment of mA and/or kV according to patient size. COMPARISON: None. FINDINGS: Image quality: Excellent. Lung bases: Lung bases are clear. Heart size is normal. Solid organs: Liver is normal in size and enhancement. Gallbladder appears normal. Biliary system is non dilated. Pancreas enhances normally. Spleen is normal in size and enhancement. No adrenal nodules. Kidneys are normal in size, without hydronephrosis. Peritoneum and bowel: Contrast enhanced bowel loops appear normal in caliber. No free fluid or air. There is generalized colonic obstipation. Nodes and vessels: No retroperitoneal or mesenteric adenopathy by size criteria. Aorta and inferior vena cava are normal in size. Bones: No suspicious bony lesions. No vertebral body compression fractures. Miscellaneous: No ventral hernias. IMPRESSION: Generalized colonic obstipation, relatively prominent, as a likely cause for reported upper abdominal pain. Dictated by: Tirso Rasmussen M.D. on 07/31/2019 at 16:00 Approved by: Tirso Rasmussen M.D. on 07/31/2019 at 16:01
== END ==
PROVIDERS: Referring Provider Internal Medicine; Visit Provider Internal Medicine
DX: R10.10 Upper abdominal pain, unspecified (principal); K59.00 Constipation, unspecified
CPT/HCPCS: 74160; Q9967

== ENCOUNTER → 2020-05-02 14:32 | Outpatient (CLI) | payer OTHER, SELFPAY ==
[2020-05-02 15:35] LABS: Lithium 0.2 mmol/L (0.6-1.2)
== END ==
PROVIDERS: Referring Provider Psychiatry & Neurology Psychiatry; Visit Provider Psychiatry & Neurology Psychiatry
DX: Z79.899 Other long term (current) drug therapy (principal)
CPT/HCPCS: 36415; 80178

== ENCOUNTER → 2020-05-21 14:13 | Outpatient (CLI) | payer OTHER, SELFPAY ==
[2020-05-21 16:12] LABS: Lithium 0.4 mmol/L (0.6-1.2)
== END ==
PROVIDERS: PCP Family Medicine; Referring Provider Psychiatry & Neurology Psychiatry; Visit Provider Psychiatry & Neurology Psychiatry
DX: F31.81 Bipolar II disorder (principal)
CPT/HCPCS: 36415; 80178

== ENCOUNTER → 2020-07-03 10:49 | Outpatient (CLI) | payer OTHER, SELFPAY ==
[2020-07-03 12:30] LABS: Lithium 0.6 mmol/L (0.6-1.2)
== END ==
PROVIDERS: PCP Family Medicine; Referring Provider Psychiatry & Neurology Psychiatry; Visit Provider Psychiatry & Neurology Psychiatry
DX: F31.81 Bipolar II disorder (principal)
CPT/HCPCS: 36415; 80178